=== PATIENT | female | born 1970 | race African-American/Black ===

== ENCOUNTER 2017-08-13 13:14 | Emergency (ER) | payer MEDICAID ==
[~2017-08-13] VITALS: Ht 162.6 cm; Wt 91.0 kg
[2017-08-13] MEDS ORDERED: KETOROLAC 60MG/2ML VIAL IM ONE (21:00)
[2017-08-13] MEDS ORDERED: LIDOCAINE HCL 1% 20ML VIAL (Pyxis) INJ MC ONE (21:00)
[2017-08-13] MEDS ORDERED: BACITRACIN ZINC OINT UDPKT TOP ONE (21:00)
[2017-08-13] MEDS ORDERED: LIDOCAINE HCL/PF 1% 10 MG/ML 5ML VIAL IJ SCH (21:22)
[2017-08-13 22:43] VITALS: BP 157/89
== END 2017-08-13 22:51 | disposition home or self-care (01) ==
LOC: ER 17:31
DX: L02.31 Cutaneous abscess of buttock (principal); R03.0 Elevated blood-pressure reading, without diagnosis of hypertension; F17.210 Nicotine dependence, cigarettes, uncomplicated
CPT/HCPCS: 10060; 96372; 99283; J1885; J3490; Z7610